=== PATIENT | female | born 2000 | race African-American/Black ===

== ENCOUNTER 2019-11-27 01:46 | Emergency (ER) | payer OTHER ==
[2019-11-27 01:53] VITALS: BP 111/71; PULSE 94; TEMP 98.4; BMI 31.6
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
[2019-11-27] MEDS ORDERED: DIPHTH,PERTUSS(ACELL),TET 0.5 ML DISP.SYRIN IM ONE ×2 (02:45→02:48)
[2019-11-27] MEDS ORDERED: IBUPROFEN 600 MG TABLET (FP) PO ONE ×2 (02:46→02:48)
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
== END 2019-11-27 04:37 | disposition home or self-care (01) ==
LOC: JER 01:46
PROC: 3E0234Z Introduction of Serum, Toxoid and Vaccine into Muscle, Percutaneous Approach (ICD-10-PCS; principal; 2019-11-27)
PROC: 0HQ0XZZ Repair Scalp Skin, External Approach (ICD-10-PCS; principal; 2019-11-27)
DX: S01.01XA Laceration without foreign body of scalp, initial encounter (principal); T76.11XA Adult physical abuse, suspected, initial encounter; Y04.8XXA Assault by other bodily force, initial encounter
CPT/HCPCS: 70450-TC; 70486-TC; 72125-TC; 90715; 99284-25